=== PATIENT | male | born 1990 ===

== ENCOUNTER 2023-04-06 08:52 | Outpatient (REF) | payer OTHER, SELFPAY ==
[2023-04-06 14:23] LABS: MANUAL DIFF FLAG NO
[2023-04-06 14:25] LABS: Basophils Percent Auto 0.5 % (0-2); Eosinophils Absolute Auto 0.2 X10*3/uL (0.0-0.4); Eosinophils Percent Auto 3.4 % (0-4); Hematocrit 48.6 % (42.0-52.0); Hemoglobin 16.5 g/dl (14.0-18.0); Imm Gran Abs Auto 0.04 X10*3/uL (0.00-0.03); Imm Gran Pct Auto 0.7 % (0.0-0.4); Lymphocytes Absolute Auto 2.4 X10*3/uL (1.2-4.9); Lymphocytes Percent Auto 40.4 % (20-40); Mean Corpuscular Hemoglobin 28.4 pg (27.0-33.0); Mean Corpuscular Volume 83.8 fL (80.0-98.0); Mean Platelet Volume 11.6 fL (9.4-12.4); Monocytes Absolute Auto 0.4 X10*3/uL (0.1-1.2); Monocytes Percent Auto 7.5 % (2-11); Neutrophils Absolute Auto 2.8 x10*3/uL (2.0-8.3); Neutrophils Percent Auto 47.5 % (45-73); Platelet Count 247 X10*3/uL (160-400); White Blood Count 5.9 X10*3/uL (4.8-10.8)
[2023-04-06 14:47] LABS: Estimated Average Glucose 103 mg/dL; Hemoglobin A1c % 5.2 % (<6.0)
[2023-04-06 15:16] LABS: Alanine Aminotransferase 39 U/L (0-40); Albumin Level 4.4 g/dL (3.5-5.0); Alkaline Phosphatase 79 U/L (39-117); Anion Gap 13 (12-20); Aspartate Amino Transferase 22 U/L (5-37); Bilirubin Direct 0.1 mg/dL (0.0-0.5); Bilirubin Total 0.4 mg/dL (0.0-1.0); Blood Urea Nitrogen 14 mg/dL (9-16); Calcium 9.6 mg/dL (8.4-10.2); Carbon Dioxide 22 mmol/L (22-29); Chloride 110 mmol/L (96-108); Cholesterol 201 mg/dL (<200); Estimated Glomerular Filt Rate > 60; Glucose Fasting 98 mg/dL (60-99); HDL Cholesterol 36 mg/dL (>40); LDL Cholesterol Calculated 110 mg/dL (<100); Potassium 3.8 mmol/L (3.3-5.1); Sodium 141 mmol/L (135-145); Total Protein 7.6 g/dL (6.5-8.0); Triglycerides 278 mg/dL (<150)
[2023-04-06 15:21] LABS: TSH reflex Free T4 0.82 uIU/mL (0.32-4.0); Vitamin D 25-OH Total 27.1 ng/mL (>30)
[2023-04-06 15:48] LABS: Creatinine Urine 243.49 mg/dL; Microalbum/Creatinine Ratio Ur 6.5 ug/mg cr (<30)
== END 2023-04-06 08:53 | disposition home or self-care (01) ==
LOC: HO.CHCLDS 08:52
PROVIDERS: Visit Provider Pediatrics
DX: R03.0 Elevated blood-pressure reading, without diagnosis of hypertension (principal); E66.9 Obesity, unspecified
CPT/HCPCS: 36415; 80048; 80061; 80076; 82043; 82306; 82570; 83036; 84443; 85025

== ENCOUNTER 2024-05-03 09:50 | Outpatient (AMB) | payer OTHER, SELFPAY ==
--- NOTE | 2024-05-03 09:51 | A.OFFVIS_ITS ---
Vital Signs 3 05/03/24 10:02 Height 5 ft 11 in Weight 309 lb BMI 43.1 BP 230/111 H Blood Pressure Location Lt brachial Position Sitting Pulse 75 Intake Visit Reasons: Skin Tag Intake Note: Patient is seen in office for skin lesion of the right groin. Pt c/o: onset 3 months, increase in size, leaks at times, bleeds, foul odor, itchy, discomfort ref [facility] Dumper Mold Cleaner Required: No Accompanied by: Self / Same As Patient Allergies No Known Allergies Allergy (Verified 05/03/24 09:58) HPI Comments Details: 33-year-old male patient presenting with a right groin large skin tag which is causing irritation on his leg. This was previously treated with liquid nitrogen without success. Patient reports the lesion has been present for least 3 months and has been increasing in size. He now has bleeding and discharge as well as some foul odor associated with the lesion. [facility] Surgical History (Updated 05/03/24 @ 09:59 by ELIAN Bell) Hx of appendectomy Social History Alcohol intake: never Patient Tobacco Use Status: Current everyday Tobacco user Review of Systems Const All systems reviewed & are unremarkable except as noted in HPI and below Physical Exam Vital Signs: Last Vital Signs Pulse 75 05/03/24 10:02 BP 230/111 H 05/03/24 10:02 BMI result Body Mass Index 43.1 Const General: cooperative and no acute distress Nutritional Appearance: well nourished Orientation/consciousness: patient oriented x3 Limitations: no limitations HEENT Head: Yes normocephalic and Yes atraumatic Ears: hearing grossly normal bilaterally Resp Effort & Inspection: normal respiratory effort, no audible wheezes, no cough and no respiratory distress Cardio Jugular venous distension: no JVD GI Other: Right groin with a 1.5 by 1.5 x 0.5 cm skin growth with a wide base measuring 1 cm. There is foul-smelling discharge surrounding the lesion with erythema at the base of the skin. Lesion is located at the crease of the leg in the right groin. Inspection: Yes normal to inspection Abdomen image: 2 1. Site of lesion right groin. 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 I recommended applying topical antibiotic for the next week after which excision can be performed down to the base. After discussion of the procedure, risks and alternatives, he consents to the procedure. This will be an office procedure under local anesthesia. 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
[2024-05-03 10:02] VITALS: BP 210/140; PULSE 75; BMI 43.1
== END 2024-05-03 10:32 | disposition home or self-care (01) ==
PROVIDERS: Visit Provider Surgery
DX: L91.8 Other hypertrophic disorders of the skin (principal)
CPT/HCPCS: 99204

== ENCOUNTER → 2024-05-03 09:50 | Outpatient (BNVA) | payer OTHER, SELFPAY | PROVIDERS: Visit Provider Surgery | DX: L91.8 Other hypertrophic disorders of the skin (principal) | CPT/HCPCS: 99202 ==

== ENCOUNTER 2024-05-09 12:51 | Outpatient (AMB) | payer OTHER, SELFPAY ==
--- NOTE | 2024-05-09 12:57 | MHC.OFFVIS ---
Vital Signs 05/09/24 13:17 Height 5 ft 11 in Weight 302 lb BMI 42.1 BP 187/112 H Blood Pressure Location Lt brachial Position Sitting Pulse 85 Intake Visit Reasons: Excision Skin Tag Intake Note: Patient is seen in office for office procedure, excision of skin lesion of the right groin. General Foreman Required: No Accompanied by: Self / Same As Patient Allergies No Known Allergies Allergy (Verified 05/09/24 13:17) Medication List - Last Reconciled 05/09/24 by Lamonte Pérez MD bacitracin zinc 1 appl topical BID divalproex ER 250 mg PO DAILY lisinopril-hydrochlorothiazide 20-25 mg 1 tab PO DAILY loratadine 10 mg PO DAILY magnesium oxide 400 mg PO DAILY olanzapine 20 mg PO BEDTIME omega 3-hgn-bww-fish oil 60-90-500 mg caps PO HPI Comments Details: 33-year-old male patient returning for an excision of skin lesion in the right groin. He feels the irritation is much improved after applying the topical ointment. He denies any new complaints. [facility] Surgical History Hx of appendectomy Social History Alcohol intake: never Patient Tobacco Use Status: Current everyday Tobacco user Physical Exam Const General: no acute distress Limitations: no limitations HEENT Head: Yes normocephalic and Yes atraumatic Ears: hearing grossly normal bilaterally Resp Effort & Inspection: normal respiratory effort, no audible wheezes, no cough and no respiratory distress GI Other: Right groin with a 1.5 by 1.5 x 0.5 cm skin growth with a wide base measuring 1 cm. There is foul-smelling discharge surrounding the lesion with erythema at the base of the skin. Lesion is located at the crease of the leg in the right groin. Skin Other: Warm, dry, no rash Office Procedures Excision Details: Preoperative diagnosis: Skin lesion right groin Postoperative diagnosis: Same Procedure: Excision skin lesion right groin Surgeon: Lamonte Pérez MD Briquette Machine Operator Helper: None Anesthesia: Local lidocaine 1% with epinephrine Indications for procedure: 33-year-old male patient presenting with a large skin lesion of the right groin with bleeding and discharge Operative findings: 1.5 x 1.5 by 0.5 cm skin lesion right groin Specimen: Skin lesion right groin Estimated blood loss: Less than 2 mL Complications: None Procedure details: The patient was brought to the procedure room and placed in a supine position. The patient confirmed the site of the procedure in the right groin. After assuring informed consent, the skin was prepped with Betadine and draped in a sterile fashion. Local anesthesia was infiltrated below the skin lesion. Lesion was excised using a 15 blade scalpel. Lesion was passed off the table and sent to pathology for further examination. Skin was then closed using 3-0 nylon sutures. Sterile 2 x 2 gauze and paper tape was then applied. The patient tolerated the procedure well. He was discharged to home in stable condition. 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 He tolerated the procedure well and will return in 1 week for suture removal. 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
[2024-05-09 13:17] VITALS: BP 187/112; PULSE 85; BMI 42.1
== END 2024-05-09 13:19 | disposition home or self-care (01) ==
PROVIDERS: Visit Provider Surgery
DX: L91.8 Other hypertrophic disorders of the skin (principal)
CPT/HCPCS: 11402

== ENCOUNTER 2024-05-09 12:51 | Outpatient (REF) | payer OTHER, SELFPAY | END 2024-05-09 12:52 | disposition home or self-care (01) | LOC: HO.LNP 12:51 | PROVIDERS: Visit Provider Surgery | DX: L91.8 Other hypertrophic disorders of the skin (principal) | CPT/HCPCS: 11402; 88304 ==

== ENCOUNTER 2024-05-16 10:38 | Outpatient (AMB) | payer OTHER, SELFPAY ==
--- NOTE | 2024-05-16 10:43 | A.OFFVIS_ITS ---
Vital Signs 05/16/24 10:47 Height 5 ft 11 in Weight 299 lb 13.259 oz BMI 41.8 Pulse 82 Intake Visit Reasons: s/p Excision Skin lesion rt groin Intake Note: Patient is seen in office for post op assessment post excision of a skin lesion of the right groin. Pt c/o: discharge in the area for the first 3 days, currently healing well, sore and tender (s/p off proc) Forge Tender Required: No Accompanied by: Self / Same As Patient Allergies No Known Allergies Allergy (Verified 05/16/24 10:47) HPI Comments Details: 33-year-old male patient returning following excision of a right groin skin l esion. Pathology revealed an inflamed fibroepithelial polyp. He tolerated the procedure well and returns for suture removal. He did report some discharge soon after the procedure but this has stopped. [facility] Surgical History Hx of appendectomy Social History Alcohol intake: never Patient Tobacco Use Status: Current everyday Tobacco user Physical Exam Const General: comfortable Nutritional Appearance: well nourished Orientation/consciousness: patient oriented x3 Resp Effort & Inspection: normal respiratory effort GI Other: Well-healed incision in the right lower quadrant. Suture removed wounds found to be well healed. 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 He tolerated the procedure well the wounds are healing nicely. He should follow up as needed. 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
[2024-05-16 10:47] VITALS: PULSE 82; BMI 41.8
== END 2024-05-16 10:52 | disposition home or self-care (01) ==
PROVIDERS: Visit Provider Surgery
DX: L91.8 Other hypertrophic disorders of the skin (principal)
CPT/HCPCS: 99024

== ENCOUNTER → 2024-05-16 10:38 | Outpatient (BNVA) | payer OTHER, SELFPAY | PROVIDERS: Visit Provider Surgery | DX: Z48.817 Encounter for surgical aftercare following surgery on the skin and subcutaneous tissue (principal); Z87.2 Personal history of diseases of the skin and subcutaneous tissue | CPT/HCPCS: 99212 ==

== ENCOUNTER 2024-06-21 09:29 | Outpatient (REF) | payer OTHER, SELFPAY ==
[2024-06-21 14:22] LABS: MANUAL DIFF FLAG NO
[2024-06-21 14:33] LABS: Estimated Average Glucose 111 mg/dL; Hemoglobin A1C 135.0748 umol/L; Hemoglobin A1c % 5.5 % (<6.0); Total Hemoglobin (HGBA1C) 3705.0635 umol/L
[2024-06-21 14:52] LABS: Valproate 18.8 mcg/mL (50.0-100.0)
[2024-06-21 14:53] LABS: Creatinine Urine 131.75 mg/dL; Microalbum/Creatinine Ratio Ur 6.8 ug/mg cr (<30)
[2024-06-21 14:53] LABS: Alanine Aminotransferase 41 U/L (0-40); Albumin Level 4.1 g/dL (3.5-5.0); Alkaline Phosphatase 84 U/L (39-117); Anion Gap 11 (12-20); Aspartate Amino Transferase 27 U/L (5-37); Bilirubin Direct 0.1 mg/dL (0.0-0.5); Bilirubin Total 0.5 mg/dL (0.0-1.0); Blood Urea Nitrogen 11 mg/dL (9-16); Calcium 8.9 mg/dL (8.4-10.2); Carbon Dioxide 26 mmol/L (22-29); Chloride 109 mmol/L (96-108); Cholesterol 206 mg/dL (<200); Estimated Glomerular Filt Rate > 60; Glucose Fasting 91 mg/dL (60-99); HDL Cholesterol 29 mg/dL (>40); LDL Cholesterol Calculated 135 mg/dL (<100); Potassium 3.9 mmol/L (3.3-5.1); Sodium 142 mmol/L (135-145); Total Protein 7.1 g/dL (6.5-8.0); Triglycerides 214 mg/dL (<150)
[2024-06-21 14:55] LABS: TSH reflex Free T4 1.21 uIU/mL (0.32-4.0)
[2024-06-21 14:57] LABS: Basophils Percent Auto 0.6 % (0-2); Eosinophils Absolute Auto 0.2 X10*3/uL (0.0-0.4); Eosinophils Percent Auto 3.9 % (0-4); Hematocrit 43.3 % (42.0-52.0); Hemoglobin 14.5 g/dl (14.0-18.0); Imm Gran Abs Auto 0.02 X10*3/uL (0.00-0.03); Imm Gran Pct Auto 0.4 % (0.0-0.4); Mean Corpuscular HGB Conc 33.5 g/dl (31.0-36.0); Mean Corpuscular Hemoglobin 28.3 pg (27.0-33.0); Mean Corpuscular Volume 84.6 fL (80.0-98.0); Mean Platelet Volume 11.6 fL (9.4-12.4); Monocytes Absolute Auto 0.3 X10*3/uL (0.1-1.2); Monocytes Percent Auto 6.4 % (2-11); Neutrophils Absolute Auto 2.3 x10*3/uL (2.0-8.3); Neutrophils Percent Auto 47.7 % (45-73); Platelet Count 222 X10*3/uL (160-400); Red Blood Count 5.12 X10*6/uL (4.60-5.80); Red Cell Distribution Width 13.2 % (11.0-16.0); White Blood Count 4.9 X10*3/uL (4.8-10.8)
== END 2024-06-21 09:30 | disposition home or self-care (01) ==
LOC: HO.CHCLDS 09:29
PROVIDERS: Visit Provider Pediatrics
DX: F25.0 Schizoaffective disorder, bipolar type (principal); I10 Essential (primary) hypertension; E66.9 Obesity, unspecified; Z13.1 Encounter for screening for diabetes mellitus
CPT/HCPCS: 36415; 80048; 80061; 80076; 80164; 82043; 82570; 83036; 84443; 85025

== ENCOUNTER 2024-12-12 09:17 | Outpatient (REF) | payer OTHER, SELFPAY ==
--- OUTSIDE RECORDS SUMMARY | 2024-12-12 09:41 | XMS_ITS | Clinical Summary ---
[facility] [address] [place] [address] Care Team Providers Care Heater Furnace Name Role Phone Unavailable Primary Care Provider Unavailabl e Social History Tobacco Use Types Packs/Day Years Used Date Smoking Tobacco: Never Assessed Sex and Gender Information Value Date Recorded Sex Assigned at Not on file Legal Sex Male 10:11 AM EST Gender Identity Not on file Sexual Orientation Not on file Plan of Treatment Health Maintenance Due Date Last Done Comments DTaP,Tdap,and Td Vaccines (1 - Tdap) 2009 Hepatitis B Vaccines (1 of 3 - 19+ 3-dose series) 2009 Depression Screening 06/14/2022 HIV Screening 06/14/2022 Hepatitis C Screening 06/14/2022 Social Influencers of Health Screening 06/14/2022 COVID-19 Vaccine ( - 2023-2 5 season) 2024 Influenza Vaccine (Season Ended) 2025 HIB Vaccines Aged Out No longer eligi ble based on patient's age to complete this topic HPV Vaccines Aged Out No longer eligi ble based on patient's age to complete this topic Hepatitis A Vaccines Aged Out No long er eligible based on patient's age to complete this topic IPV Vaccines Aged Out No longer eligi ble based on patient's age to complete this topic MMR Vaccines Aged Out No longer eligi ble based on patient's age to complete this topic Meningococcal ACWY Vaccine Aged Out N o longer eligible based on patient's age to complete this topic Meningococcal B Vaccine Aged Out No l onger eligible based on patient's age to complete this topic Pneumococcal Vaccine: Pediat rics (0 to 5 Years) and At-Risk Patients (6 to 64 Years) Aged Out No longer eligible b ased on patient's age to complete this topic RSV Immunization Patients Un jose 20 months Aged Out No longer eligible b ased on patient's age to complete this topic Varicella Vaccines Aged Out No longer eligible based on patient's age to complete this topic
[2024-12-12 11:21] LABS: Valproate 29.5 mcg/mL (50.0-100.0)
== END 2024-12-12 09:18 | disposition home or self-care (01) ==
LOC: HO.CHCLDS 09:17
PROVIDERS: Visit Provider Registered Nurse
DX: F25.0 Schizoaffective disorder, bipolar type (principal); Z79.899 Other long term (current) drug therapy
CPT/HCPCS: 36415; 80164

== ENCOUNTER 2025-03-21 09:03 | Outpatient (REF) | payer OTHER, SELFPAY ==
--- OUTSIDE RECORDS SUMMARY | 2025-03-20 10:00 | XMS_ITS | Encounter Summary ---
Author Organization [employer] Address [address] [place] [address] Care Team Providers Care Jetting Machine Operator Name Role Phone Uyen Jones MD Primary Care Provider [phone] Neftali Torres Unavailable Unavailable Encounter Details Date Type Department Care Team ([facility] st Contact Info) Description 03/20/2025 10:00 AM EDT Office Visit [facility] [address], [place] [id number] Uyen Jones MD [address] [place] [address] Obesity with body mass index 30 or greater (Primary Dx); Dietary counseling; Exercise counseling; Schizoaffective disorder, bipolar type (CMS/HCC) Social History Tobacco Use Types Packs/Day Years Used Date Smoking Tobacco: Never Passive Smoke Exposure: Never Smokeless Tobacco: Never Depression Answer Date Recorded Patient Health Questionnaire-9 Score 1 12/18/2023 Patient Health Questionnaire-9 Score 1 12/18/2023 Last PHQ-9: Questionnaire Data Not on file 0 12/18/2023 Housing Stability Answer Date Recorded What is your housing situation today? I have layla webb 05/02/[address] you li ve. Do you have problems with any of the following? None of the above 05/02/2024 Food Insecurity Answer Date Recorded Within the past 12 months, y ou worried that your food would run out before you got money to buy more: Never True 05/02/2024 Within the past 12 months,th e food you bought just didn't last and you didn't have enough money to get more: Never True Transportation Answer Date Recorded In the past 12 months, has l ack of transportation kept you from medical appts, meetings, work or from getting things needed for daily living? No 05/02/2024 Utilities Answer Date Recorded In the past 12 months, has t he electric, gas, oil or water company threatened to shut off services in your home? No 05/02/2024 Depression Answer Date Recorded Patient Health Questionnaire-2 Score 1 12/18/2023 Internet Access Answer Date Recorded Internet Access Q1 Yes 05/02/2024 Internet Access Q2 Not on file 05/02/2024 Sex and Gender Information Value Date Recorded Sex Assigned at Male 05/16/2022 10:14 AM EDT Legal Sex Male 10:14 AM EDT Gender Identity Choose not to disclose 10:14 AM EDT Sexual Orientation Choose not to disclose 2021 10:14 AM EDT documented as of this encounter Last Filed Vital Signs Vital Sign Reading Time Taken Comments Blood Pressure 142/84 03/20/2025 9:38 AM EDT Pulse 76 03/20/2025 9:38 AM EDT Temperature 36.9 C (98.4 F) 03/20/2025 9:38 AM EDT Respiratory Rate 20 03/20/2025 9:38 AM EDT Oxygen Saturation - - Inhaled Oxygen Concentration - - Weight 133 kg (293 lb) 03/20/2025 9:38 AM EDT Height 180.3 cm (5' 11 ) 03/20/2025 9:38 AM EDT Body Mass Index 40.87 03/20/2025 9:38 AM EDT documented in this encounter Plan of Treatment Scheduled Orders Name Type Priority Associated Diagnoses Orde r Schedule Valproic Acid Total Lab Routine Dietary counseling Exercise counseling Schizoaffective disorder, bipolar type (CMS/HCC) Obesity with body mass index 30 or greater Expected: 03/20/2025 (Approximate), Expires: 03/20/2026 CBC auto differential Lab Routine Dietary counseling Exercise counseling Schizoaffective disorder, bipolar type (CMS/HCC) Obesity with body mass index 30 or greater Expected: 03/20/2025 (Approximate), Expires: 03/20/2026 Hemoglobin A1c Lab Routine Dietary counseling Exercise counseling Schizoaffective disorder, bipolar type (CMS/HCC) Obesity with body mass index 30 or greater Expected: 03/20/2025 (Approximate), Expires: 03/20/2026 Hepatic Function Panel Lab Routine Dietary counseling Exercise counseling Schizoaffective disorder, bipolar type (CMS/HCC) Obesity with body mass index 30 or greater Expected: 03/20/2025 (Approximate), Expires: 03/20/2026 TSH W/Reflex to FT4 Lab Routine Dietary counseling Exercise counseling Schizoaffective disorder, bipolar type (CMS/HCC) Obesity with body mass index 30 or greater Expected: 03/20/2025 (Approximate), Expires: 03/20/2026 Creatine Kinase, Total Lab Routine Dietary counseling Exercise counseling Schizoaffective disorder, bipolar type (CMS/HCC) Obesity with body mass index 30 or greater Expected: 03/20/2025, Expires: 03/20/2026 Lipid Panel, Standard Lab Routine Dietary counseling Exercise counseling Schizoaffective disorder, bipolar type (CMS/HCC) Obesity with body mass index 30 or greater Expected: 03/20/2025 (Approximate), Expires: 03/20/2026 documented as of this encounter Visit Diagnoses Diagnosis Obesity with body mass index 30 or greater- Primary Dietary counseling Dietary surveillance and counseling Exercise counseling Schizoaffective disorder, bipolar type (CMS/HCC) Schizoaffective disorder, unspecified condition documented in this encounter Additional Health Concerns Assessment Noted Time PHQ-9 Depression Total Score: 1 12/18/19 24 10:23 AM EDT documented as of this encounter Care Teams Jetting Machine Operator Relationship Specialty Start Date End Date Uyen Jones MD [address] [place] [address] PCP - General Family Medicine 07/17/18 Neftali Torres FNP [address] [place] [address] Nurse Practitioner Family Medicine 06/05/23 documented as of this encounter
--- OUTSIDE RECORDS SUMMARY | 2025-03-21 09:49 | XMS_ITS | Encounter Summary ---
Author Organization [employer] Address [address] [place] [address] Care Team Providers Care Company Dancer Name Role Phone Uyen Jones MD Primary Care Provider [phone] Neftali Torres Unavailable Unavailable Encounter Details Date Type Department Care Team (Latest Contact Info) Description 03/20/2025 Travel Social History Tobacco Use Types Packs/Day Years [...] AM EDT documented as of this encounter Plan of Treatment Not on file documented as of this encounter Visit Diagnoses Not on filedocumented in this encounter Additional Health Concerns Assessment Noted Time PHQ-9 Depression Total Score: 1 12/18/19 24 10:23 AM EDT documented as of this encounter Care Teams Company Dancer Relationship Specialty Start Date End Date Uyen Jones MD [address] [place] [address] PCP - General Family Medicine 07/17/18 Neftali Torres FNP [address] [place] [address] Nurse Practitioner Family Medicine 06/05/23 documented as of this encounter
--- OUTSIDE RECORDS SUMMARY | 2025-03-21 09:49 | XMS_ITS | Clinical Summary ---
Author Organization [facility] Address [address] [place] [address] Care Team Providers Care Multisensor Intelligence Officer Name Role Phone Unavailable Primary Care Provider Unavailabl e Social History Tobacco Use Types Packs/Day Years Used Date Smoking Tobacco: Never Assessed Sex and Gender Information Value Date Recorded Sex Assigned at Not on file Legal Sex Male 3:29 PM EDT Gender Identity Not on file Sexual Orientation Not on file Plan of Treatment Health Maintenance Due Date Last Done Comments Hepatitis C Virus Screening 1990 HIV Screening 2003 DTaP/Tdap/Td Vaccines (1 - Tdap) 2009 Hepatitis B Vaccines (1 of 3 - 19+ 3-dose series) 2009 HPV Vaccines (1 - 3-dose SCD M series) 2017 COVID-19 Vaccine ( - 2023-2 5 season) 2024 Pneumococcal Vaccine: Pediat meagan (0-5 Years) and At-Risk Patients (6 to 49 Years) Aged Out No longer eligible b ased on patient's age to complete this topic
--- OUTSIDE RECORDS SUMMARY | 2025-03-21 09:49 | XMS_ITS | Clinical Summary ---
Author Organization [employer] [facility] ity Address [address] [place] [address] Care Team Providers Care Director Project Management Name Role Phone Unavailable Primary Care Provider [...] - 19+ 3-dose series) 2009 Depression Screening 07/17/2024 COVID-19 Vaccine (1 - 2023-2 5 season) 2025 Influenza Vaccine (#1) 2025 HIB Vaccines Aged Out No longer [...] 5 Years) and At-Risk Patients (6 to 49 [...]
--- OUTSIDE RECORDS SUMMARY | 2025-03-21 09:49 | XMS_ITS | Clinical Summary ---
Author Organization [employer] Address [address] [place] [address] Care Team Providers Care Sales Marketing Name Role Phone Uyen Jones MD Primary Care Provider [phone] Neftali Torres Unavailable Unavailable Allergies No known active allergies Medications * This document contains information received from the source organization and may not represent a complete record from that organization. Blood Pressure kit 1 Units in the morning. 1 kit 02/28/20 23 Active Blood Pressure Monitoring (Omron 3 Series BP Monitor) device Check blood pressure on arm as directed 02/28/20 23 Active fish oil (Choudrant-3) 500 MG capsule Take 1 capsule (500 mg) by mouth Once per day. 60 capsule 11 11/10/19 24 Active loratadine (Claritin) 10 MG tablet Take 1 tablet (10 mg) by mouth Once per day. 30 tablet 11 11/10/19 24 Active losartan (Cozaar) 50 MG tablet Take 1 tablet (50 mg) by mouth Once per day. 30 tablet 11 05/09/20 24 025 Active divalproex (Depakote ER) 250 MG 24 hr tabletIndicati ons:Schizoaffe ctive disorder, bipolar type (CMS/HCC) Take 1 tablet (250 mg) by mouth Once per day. 90 tablet 12/11/19 25 Active magnesium oxide (Mag-Ox) 400 MG tablet TAKE 1 TABLET (400 MG) BY MOUTH IN THE MORNING 90 tablet 1 01/21/20 25 Active divalproex (Depakote ER) 500 MG 24 hr tabletIndicati ons:Schizoaffe ctive disorder, bipolar type (CMS/HCC) Take 1 tablet (500 mg) by mouth 2 times daily. 180 tablet 03/20/20 25 025 Active OLANZapine (ZyPREXA) 20 MG tabletIndicati ons:Schizoaffe ctive disorder, bipolar type (CMS/HCC) Take 1 tablet (20 mg) by mouth at bedtime. 90 tablet 03/20/20 25 025 Active OLANZapine (ZyPREXA) 20 MG tabletIndicati ons:Schizoaffe ctive disorder, bipolar type (CMS/HCC) Take 1 tablet (20 mg) by mouth at bedtime. 90 tablet 12/11/19 25 025 Discontinued(Re order (will not trigger notification to Pharmacy)) divalproex (Depakote ER) 500 MG 24 hr tabletIndicati ons:Schizoaffe ctive disorder, bipolar type (CMS/HCC) Take 1 tablet (500 mg) by mouth 2 times daily. 180 tablet 12/11/19 25 025 Discontinued(Re order (will not trigger notification to Pharmacy)) Active Problems Problem Noted Date Diagnosed Date Obesity, morbid 11/10/2023 Dog bite 02/27/2023 Assessment & Plan (02/27/2023 10:49 AM EDT): Encouraged to complete antibiotic treatment. Will start on mupirocin 2% ointment. Elevated blood pressure reading 02/27/2023 Assessment & Plan (02/27/2023 10:50 AM EDT): Will send BP cuff. Encouraged consistent monitoring at home and follow up to recheck. Eczema 02/27/2023 Assessment & Plan (02/27/2023 10:50 AM EDT): Patient with history of eczema. Will refill clobetasol 0.05% ointment. Schizoaffective disorder, bipolar type Assessment & Plan (12/18/2023 10:59 AM EDT): Again doing very well. Continue Olanzapine 20 mg at bedtime, Depakote ER 500 mg BID, Depakote ER 250 mg daily. He will be referred for counseling. Since this provider will be retiring, patient is now referred back to his PCP for further medication management. Any issues or concerns, contact the health center. All his questions were answered and I have wished him well. He agrees with the plan Assessment & Plan (10/16/2023 11:36 AM EDT): Not as stable, reports feeling triggered. Reviewed medication dosing: Olanzapine 20 mg at bedtime, Depakote ER 500 mg BID, Depakote ER 250 mg daily. On 06/05/2023 pt was informed that this provider would be retiring, but we would make every effort to ensure continuity of care. Meanwhile F/U with me in 2 months. He is still not interested in counseling. He agrees with the plan Assessment & Plan (08/17/2023 4:22 PM EST): Dealing with life stressors, but mood is stable. Will continue Olanzapine 20 mg at bedtime, remain off the additional Olanzapine 5 mg daily. Continue Depakote ER 500 mg BID, Depakote ER 250 mg daily. On 06/05/2023 pt was informed that this provider would be retiring, but we would make every effort to ensure continuity of care. He is still not interested in counseling. RV with me in 2 months. Pt agrees with the plan Assessment & Plan (06/05/2023 10:57 AM EST): Not doing as well, recently notified that he was losing is SSDI. Unfortunately also lost his 2-day-per week job as he couldn't handle the stress of being around groups of people Plans to appeal the decision. Also recently diagnosed with Htn and hyperlpidemia. Will cautiously try to decrease the SGA: Hold the Olanzapine 5 mg but continue Olanzapine 20 mg at bedtime. If mood destabilizes, resume the Olanzapine 5 mg as well. Continue Depakote ER 500 mg BID, Depakote ER 250 mg daily. Today 06/05/2023 pt was informed that this provider would be retiring within a year or so, but we would make every effort to ensure continuity of care. RV with me in 2 months. Pt agrees with the plan Assessment & Plan (04/03/2023 11:10 AM EDT): Pt continues doing extremely well. Was able to cope with stress of appealing discontinuation of SSDI. Actively involved in raising his 12-yr old daughter, and is committed to being a good influence in her life. Has been able to sustain a romantic relationship. Working. Continue medications: Depakote ER 500 mg BID, Depakote ER 250 mg daily, Olanzapine 20 mg plus 5 mg at bedtime.. RV with me in 2 months. Pt agrees with the plan Assessment & Plan (01/30/2023 11:37 AM EDT): Pt continues doing extremely well. Actively involved in raising his 12-yr old daughter, and is committed to being a good influence in her life. Has been able to sustain a romantic relationship. Working. Continue medications. RV with me in 2 months. Pt agrees with the plan Assessment & Plan (11/28/2022 1:55 PM EDT): Pt continues doing extremely well. Actively involved in raising his 12-yr old daughter, and is committed to being a good influence in her life. Has been able to sustain a romantic relationship. 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 Continue medications. RV with me in 2 months. Pt agrees with the plan Assessment & Plan (09/22/2022 10:20 AM EST): Pt continues doing well. Has been able to sustain a romantic relationship. Continue medications. RV with me in 2 months. Pt agrees with the plan Assessment & Plan (07/25/2022 3:39 PM EST): Pt continues doing well, although worried about upcoming court date. He is also no longer working which gave him social structure. Suggest he look for another job. Continue medications. RV with me in 2 months. Pt agrees with the plan Severe recurrent major depre ssion with psychotic features, mood-incongruent 05/19/2015 Seasonal allergic rhinitis 05/19/2015 Obesity with body mass index 30 or greater 05/19 Encounters * This document contains information received from the source organization and may not represent a complete record from that organization. Date Type Department Care Team Description 03/20/2025 10:00 AM EDT Office Visit [facility] [address] [place] [address] Uyen Jones MD Obesity with body mass index 30 or greater (Primary Dx); Dietary counseling; Exercise counseling; Schizoaffective disorder, bipolar type ([facility]/HCC) 03/20/2025 Travel 03/18/2025 Telephone [facility] [address] [place] [address] Uyen Jones MD Chart Prep 03/13/2025 Travel 01/17/2025 Refill [facility] [address] [place] [address] Uyen Jones MD from Last 3 Months Immunizations Immunization Administration Dates Next Due DTaP, 5 pertussis antigens 08/24/1995,,04/16/1991,1990,1990 Hep B, Adolescent or Pediatric 11/14/1997,1996,08/24/1995 Hib (PRP-OMP) 10/16/1991, 1,1990,1990 IPV 08/24/1995, 3,04/16/1991,1990,1990 Influenza injectable quadriv alent IIV4 with preservative 06/30/2015 Influenza, Split (incl. dulce fied surface antigen) 07/05/2013 Influenza, seasonal, injecta ble, preservative free 04/19/2024 MMR 08/24/1995,10/16/1991 Rabies, IM Diploid Cell Culture 03/06/2023,02/28,02/21/2023 TD (adult), 2 Lf tetanus tox oid, preservative free, adsorbed 09/16/2008,05/26/2004 Tdap 02/21/2023,07/05/2013 Social History Tobacco Use Types Packs/Day Years Used Date Smoking Tobacco: Never Passive Smoke Exposure: Never Smokeless Tobacco: Never Depression Answer Date Recorded Patient Health Questionnaire-9 Score 1 12/18/2023 Patient Health Questionnaire-9 Score 1 12/18/2023 Last PHQ-9: Questionnaire Data Not on file 0 12/18/2023 Housing Stability Answer Date Recorded What is your housing situation today? I have layla sing 05/02/[address] you li [...] not to disclose 2021 10:14 AM EDT Last Filed Vital Signs Vital Sign Reading Time Taken Comments Blood Pressure 142/84 03/20/2025 9:38 AM EDT Pulse 76 03/20/2025 9:38 AM EDT Temperature 36.9 C (98.4 F) 03/20/2025 9:38 AM EDT Respiratory Rate 20 03/20/2025 9:38 AM EDT Oxygen Saturation 96% 05/09/2024 11:27 AM EDT Inhaled Oxygen Concentration - - Weight 133 kg (293 lb) 03/20/2025 9:38 AM EDT Height 180.3 cm (5' 11 ) 03/20/2025 9:38 AM EDT Body Mass Index 40.87 03/20/2025 9:38 AM EDT Plan of Treatment Health Maintenance Due Date Last Done Comments HIV Screening 1990 Family Planning (PISQ) 2005 HPV Vaccines (1 - 3-dose series) 2005 Hepatitis C Screening 2008 Depression Screening 12/17/2024 12/18/2023, 12/18/19 24 COVID-19 Vaccine ( season) 2025 Influenza Vaccine (#1) 2025 , 06/30/2015, 07/05/2013 SDOH Screening 05/02/2025 05/02/2024 Tobacco Screening 12/10/2025 12/10/2024 Disability Screening 03/13/2026 03/13/2025 Alcohol/Substance Use Screening 03/20/2026 03/20/2025 Lipid Panel 06/21/2029 06/21/2024, 04/06/2023 DTaP/Tdap/Td Vaccines (8 - Td or Tdap) 02/21/2033 02/21/2023, 07/05/2013, 09/16/2008, Additional history exists Zoster Vaccines (1 of 2) 2040 RSV Patients and Patients Aged 60 years or older (1 - 1-dose 75+ series) 2065 HIB Vaccines Completed 10/16/1991, 07/1990, 1990, Additional history exists IPV Vaccines Completed 08/24/1995, 07/1992, 04/16/1991, Additional history exists Hepatitis B Vaccines Completed 11/14/1997, 06/11/1997, 08/24/1995 Hepatitis A Vaccines Aged Out No long er eligible based on patient's age to complete this topic Meningococcal B Vaccine Aged Out No l onger eligible based on patient's age to complete this topic Meningococcal Vaccine Aged Out No juan irene eligible based on patient's age to complete this topic Pneumococcal Vaccine: Pediatrics (0 to 5 Years) and At-Risk Patients (6 to 49) Years Aged Out No longer eligible based on patient's age to complete this topic RSV under 20 months Aged Out No longe r eligible based on patient's age to complete this topic Rotavirus Vaccines Aged Out No longer eligible based on patient's age to complete this topic Procedures Procedure Name Priority Date/Time Associated Diagnosis Comments LIPID PANEL, STANDARD Routine 06/21/2024 9:31 AM EST Schizoaffective disorder, bipolar type (CMS/HCC) Primary hypertension Obesity with body mass index 30 or greater from Last 3 Months or Most Recently Relevant to Health Maintenance Results * (ABNORMAL) Lipid Panel, Standard (06/21/2024 9:31 AM EST) Triglycerides 214(H) <150 mg/dL [facility] Comment:Desirable Triglyceri de: less than 150 mg/dLBorderline High Triglyceride 150-199 mg/dLHigh Triglyceride: 200-499 mg/dLVery High Triglyceride: greater than or equal to 5OO mg/dL Cholesterol 206(H) <200 mg/dL [facility] Comment:Desirable Cholestero l: less than 200 mg/dLBorderline High Cholesterol: 200-239 mg/dLHigh Cholesterol: greater than 239 mg/dL LDL Cholesterol Calculated 135(H) <100 mg/dL [facility] Comment:Desirable LDL: less than 100 mg/dLNear Optimal/Above Optimal LDL: 110- 129 mg/dLBorderline High LDL: 130-159 mg/dLHigh LDL: 160-189 mg/dLVery High LDL: greater than or equal to 190 mg/dL HDL Cholesterol 29(L) >40 mg/dL [facility] Comment:Desirable HDL: great er than 40 mg/dL Note: This HDL assay may give artificially low results in patients with liver disease. Blood Venous blood specimen / Unknown 06/21/2024 9:31 AM EST 06/21/2024 2:17 PM EST us Uyen Jones MD LAB BLOOD ORDERABLES Final Re sult [facility] [address] [place] [address] [phone] from Last 3 Months or Most Recently Relevant to Health Maintenance Insurance [id number] < 65 [place] [id number] Care Teams Sales Marketing Relationship Specialty Start Date End Date Uyen Jones MD [address] [place] [address] PCP - General Family Medicine 07/17/18 Neftali Torres FNP [address] [place] [address] Nurse Practitioner Family Medicine 06/05/23
--- OUTSIDE RECORDS SUMMARY | 2025-03-21 09:49 | XMS_ITS | Encounter Summary ---
Author Organization [employer] Address [address] [place] [address] Care Team Providers Care Contact Lens Technician Name Role Phone Uyen Jones MD Primary Care Provider [phone] Neftali Torres Unavailable Unavailable Reason for Visit * Reason Onset Date Comments Chart Prep 03/18/2025 Encounter Details Date Type Department Care Team ([facility] st Contact Info) Description 03/18/2025 Telephone [facility] [address] [place], [place] [phone] Uyen Jones MD [address] [place] [address] Chart Prep Social History Tobacco Use Types Packs/Day Years [...] AM EDT documented as of this encounter Miscellaneous Notes * Telephone Encounter - Scarlet Harper [place] - 03/18/2025 11:33 AM EDT Chart Prep Labs: not applicable Images: not applicable Referrals: not applicable Vaccines due: HPV Screenings: STI screening Overdue care gaps: SBIRT and PHQ-9 documented in this encounter Plan of Treatment Not on file documented as of this encounter Visit Diagnoses Not on filedocumented in this encounter Additional Health Concerns Assessment Noted Time PHQ-9 Depression Total Score: 1 12/18/19 24 10:23 AM EDT documented as of this encounter Care Teams Contact Lens Technician Relationship Specialty Start Date End Date Uyen Jones MD [address] [facility] [facility] [place] [address] PCP - General Family Medicine 07/17/18 Neftali Torres FNP [address] [facility] [place] [address] Nurse Practitioner Family Medicine 06/05/23 documented as of this encounter
[2025-03-21 11:51] LABS: MANUAL DIFF FLAG NO
[2025-03-21 11:56] LABS: Hematocrit 43.4 % (42.0-52.0); Hemoglobin 14.4 g/dl (14.0-18.0); Imm Gran Abs Auto 0.02 X10*3/uL (0.00-0.03); Imm Gran Pct Auto 0.4 % (0.0-0.4); Lymphocytes Absolute Auto 2.3 X10*3/uL (1.2-4.9); Mean Corpuscular HGB Conc 33.2 g/dl (31.0-36.0); Mean Corpuscular Hemoglobin 28.0 pg (27.0-33.0); Mean Corpuscular Volume 84.3 fL (80.0-98.0); NRBC Abs Auto 0.000 X10*3/uL (0.0-0.012); NRBC Pct Auto 0.0 /100WBC (0.0-0.2); Platelet Count 218 X10*3/uL (160-400); Red Blood Count 5.15 X10*6/uL (4.60-5.80); White Blood Count 5.0 X10*3/uL (4.8-10.8)
[2025-03-21 12:16] LABS: Hemoglobin A1C 133.1030 umol/L; Total Hemoglobin (HGBA1C) 3709.6947 umol/L
[2025-03-21 12:20] LABS: Alanine Aminotransferase 30 U/L (0-40); Albumin Level 4.3 g/dL (3.5-5.0); Alkaline Phosphatase 83 U/L (39-117); Aspartate Amino Transferase 33 U/L (5-37); Cholesterol 177 mg/dL (<200); HDL Cholesterol 28 mg/dL (>40); Total Protein 6.9 g/dL (6.5-8.0); Triglycerides 124 mg/dL (<150)
== END 2025-03-21 09:04 | disposition home or self-care (01) ==
LOC: HO.CHCLDS 09:03
PROVIDERS: Visit Provider Pediatrics
DX: F25.0 Schizoaffective disorder, bipolar type (principal); E66.9 Obesity, unspecified; Z13.1 Encounter for screening for diabetes mellitus
CPT/HCPCS: 36415; 80061; 80076; 80164; 82550; 83036; 84443; 85025